=== PATIENT | male | born 1935 | race Caucasian/White ===

== ENCOUNTER 2020-07-10 07:06 | Inpatient (IN) | payer MEDICARE, BC ==
[2020-07-10] MEDS ORDERED: NORMAL SALINE 500 ML IV ONE (09:20)
[2020-07-10] MEDS ORDERED: MORPHINE SULFATE 10 MG/ML INJ IV ONE (10:35)
[2020-07-10 10:49] LABS: ABSOLUTE BASOPHILS # (AUTO) 0.1 10^3/uL (0.0-0.2); ABSOLUTE LYMPHOCYTES (AUTO) 1.7 10^3/uL (0.5-4.7); ABSOLUTE MONOCYTES (AUTO) 0.6 10^3/uL (0.1-1.4); ABSOLUTE NEUT (AUTO) 5.3 10^3/uL (1.7-8.2); BASOPHILS % (AUTO) 1.6 % (0-2); EOSINOPHILS % (AUTO) 0.6 % (0-6); HEMATOCRIT 28.8 % (37.9-51.0); HEMOGLOBIN 9.1 g/dL (13.5-17.0); MEAN CORPUSCULAR HEMOGLOBIN 28.5 pg (27.0-33.4); MEAN CORPUSCULAR HGB CONC 31.6 g/dL (32.0-36.0); MEAN CORPUSCULAR VOLUME 90 fl (80-97); MONOCYTES % (AUTO) 7.6 % (3-13); PLATELET COUNT 441 10^3/uL (150-450); RED BLOOD COUNT 3.19 10^6/uL (4.35-5.55); RED CELL DISTRIBUTION WIDTH 17.7 % (11.5-14.0); SEGMENTED NEUTROPHILS % (AUTO) 68.2 % (42-78); TOTAL CELLS COUNTED % (AUTO) 100 %; WHITE BLOOD COUNT 7.8 10^3/uL (4.0-10.5)
[2020-07-10 11:05] LABS: ALBUMIN 3.8 g/dL (3.5-5.0); ALKALINE PHOSPHATASE 265 U/L (38-126); ANION GAP 12 (5-19); ASPARTATE AMINO TRANSFERASE 32 U/L (17-59); BILIRUBIN,DIRECT 0.3 mg/dL (0.0-0.4); BILIRUBIN,TOTAL 0.8 mg/dL (0.2-1.3); BLOOD UREA NITROGEN 46 mg/dL (7-20); CALCIUM 9.4 mg/dL (8.4-10.2); CARBON DIOXIDE 26 mmol/L (22-30); CHLORIDE 124 mmol/L (98-107); GLUCOSE 114 mg/dL (75-110); POTASSIUM 3.8 mmol/L (3.6-5.0); TOTAL PROTEIN 8.4 g/dL (6.3-8.2)
[2020-07-10 11:19] LABS: INTERNATIONAL RATION (INR) 1.31; PROTHROMBIN TIME 16.5 SEC (11.4-15.4)
--- NOTE | 2020-07-10 11:20 | RADIOLOGY REPORT (SQ) ---
EXAM DESCRIPTION: CT HEAD WITHOUT IMAGES COMPLETED DATE/TIME: 07/10/2020 11:06 am REASON FOR STUDY: skin ulcer/bleeding/ left paietal/occiput region COMPARISON: None. TECHNIQUE: Axial images acquired through the brain without intravenous contrast. Images reviewed wit h bone, brain and subdural windows. Images stored on PACS. All CT scanners at this facility use dose modulation, iterative reconstruction, and/or weight based d osing when appropriate to reduce radiation dose to as low as reasonably achievable (ALARA). [facility]: Dose Right [facility]: CareDose [facility]: Dose Right [facility]: Teradose 4D [facility]: [facility] Integrated RADIATION DOSE: CT Rad equipment meets quality standard of care and radiation dose reduction techniq ues were employed. CTDIvol: 55.2 mGy. DLP: 1194 mGy-cm.. LIMITATIONS: None. FINDINGS: VENTRICLES: Age-appropriate size and contour. CEREBRUM: No acute hemorrhage or midline shift. Small vessel ischemic changes in the white matter wi th old appearing small right frontal infarct over the convexity. No evidence for acute infarction. CEREBELLUM: No masses. No hemorrhage. No alteration of density. No evidence for acute infarction. EXTRA-AXIAL SPACES: No fluid collections. ORBITS AND GLOBE: No intra- or extraconal masses. Normal contour of globe without masses. CALVARIUM: No fracture. PARANASAL SINUSES: No fluid or mucosal thickening. SOFT TISSUES: Small amount of left parietal soft tissue swelling. OTHER: No other significant finding. IMPRESSION: NO ACUTE INTRACRANIAL FINDINGS.Small amount of left parietal soft tissue swelling. EVIDENCE OF ACUTE STROKE: NO. TECHNICAL DOCUMENTATION: JOB ID: [id number] [place]-[id number] Quality ID # [id number]: Final reports with documentation of one or more dose reduction techniques (e.g., Au tomated exposure control, adjustment of the mA and/or kV according to patient size, use of iterative reconstruction technique) 2010 [employer]- All Rights Reserved Reading location - IP/workstation name: [employer] [employer]
[2020-07-10] MEDS ORDERED: LIDOCAINE 1% INJ-PF (10 MG/ML) 30 ML SDV INJ ONE (11:40)
[2020-07-10] MEDS ORDERED: NORMAL SALINE 1000 ML 1,000 ML IV ONE (14:07)
--- NOTE | 2020-07-10 14:38 | RADIOLOGY REPORT (SQ) ---
EXAM DESCRIPTION: CHEST SINGLE VIEW IMAGES COMPLETED DATE/TIME: 07/10/2020 2:23 pm REASON FOR STUDY: Dementia/hypernatremic COMPARISON: None. EXAM PARAMETERS: NUMBER OF VIEWS: One view. TECHNIQUE: Single frontal radiographic view of the chest acquired. RADIATION DOSE: NA LIMITATIONS: None. FINDINGS: LUNGS AND PLEURA: Minimal faint density in the left lung base. No lobar infiltrate, john s or pneumothorax. No pleural effusion. MEDIASTINUM AND HILAR STRUCTURES: No masses. Contour normal. HEART AND VASCULAR STRUCTURES: Heart normal in size. Normal vasculature. BONES: No acute findings. HARDWARE: None in the chest. OTHER: No other significant finding. IMPRESSION: MINIMAL ATELECTASIS OR SCARRING IN THE LEFT LUNG BASE. CANNOT EXCLUDE EARLY PNEUMONIA A LTHOUGH PROBABLY LESS LIKELY. TECHNICAL DOCUMENTATION: JOB ID: [id number] 2010 [employer]- All Rights Reserved Reading location - IP/workstation name: [email or web address]
[2020-07-10] MEDS ORDERED: DEXTROSE 5%-WATER 1000 ML 1,000 ML IV PRN (15:22)
[2020-07-10] MEDS ORDERED: ONDANSETRON HCL INJ/PF 4 MG/2 ML SDV IV PRN (15:22)
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
[2020-07-10 16:54] LABS: ANION GAP 7 (5-19); BLOOD UREA NITROGEN 45 mg/dL (7-20); CALCIUM 8.6 mg/dL (8.4-10.2); CARBON DIOXIDE 25 mmol/L (22-30); CHLORIDE 129 mmol/L (98-107); GLUCOSE 100 mg/dL (75-110)
[2020-07-10 23:33] LABS: ANION GAP 8 (5-19); BLOOD UREA NITROGEN 44 mg/dL (7-20); CALCIUM 8.8 mg/dL (8.4-10.2); CARBON DIOXIDE 26 mmol/L (22-30); CHLORIDE 129 mmol/L (98-107); GLUCOSE 105 mg/dL (75-110); POTASSIUM 4.2 mmol/L (3.6-5.0)
[2020-07-11 05:13] LABS: HEMATOCRIT 25.9 % (37.9-51.0); HEMOGLOBIN 8.2 g/dL (13.5-17.0); MEAN CORPUSCULAR HEMOGLOBIN 28.7 pg (27.0-33.4); MEAN CORPUSCULAR HGB CONC 31.7 g/dL (32.0-36.0); MEAN CORPUSCULAR VOLUME 91 fl (80-97); PLATELET COUNT 317 10^3/uL (150-450); RED BLOOD COUNT 2.86 10^6/uL (4.35-5.55); RED CELL DISTRIBUTION WIDTH 18.3 % (11.5-14.0); WHITE BLOOD COUNT 6.7 10^3/uL (4.0-10.5)
[2020-07-11 05:28] LABS: ANION GAP 10 (5-19); BLOOD UREA NITROGEN 43 mg/dL (7-20); CALCIUM 8.8 mg/dL (8.4-10.2); CARBON DIOXIDE 25 mmol/L (22-30); CHLORIDE 127 mmol/L (98-107); GLUCOSE 107 mg/dL (75-110); POTASSIUM 3.8 mmol/L (3.6-5.0)
[2020-07-11 12:58] LABS: ANION GAP 11 (5-19); BLOOD UREA NITROGEN 40 mg/dL (7-20); CALCIUM 8.9 mg/dL (8.4-10.2); CARBON DIOXIDE 23 mmol/L (22-30); CHLORIDE 126 mmol/L (98-107); GLUCOSE 99 mg/dL (75-110); POTASSIUM 3.6 mmol/L (3.6-5.0)
--- NOTE | 2020-07-11 15:51 | PDOC PROGRESS REPORT ---
Subjective Date:: 07/11/20 Subjective:: No adverse events overnight. Vital signs been stable. He remains in soft restr aints but he is a little more awake and talkative today. Reason For Visit: HYPERNATREMIA Physical Exam Vital Signs: Temp Pulse Resp BP Pulse Ox 97.9 F 79 21 H 136/77 H 80 L 07/11/20 11:41 07/11/20 14:00 07/11/20 11:41 07/11/20 11:41 07/11/20 08:07 Intake & Output 07/10/20 07/11/20 07/12/20 06:59 06:59 06:59 Intake Total 1500 Balance 1500 Weight 52.5 kg General appearance: PRESENT: no acute distress, disheveled, thin Head exam: PRESENT: other -large hematoma on the left lateral occiput as previously described with large wound bed from where he has been picking at it, no surrounding erythema or purulence. Respiratory exam: PRESENT: clear to auscultation lorraine, symmetrical, unlabored. ABSENT: accessory muscle use, chest wall tenderness, crackles, prolonged expiratory phas, rhonchi, tachypnea, wheezes Cardiovascular exam: PRESENT: RRR, +S1, +S2 Pulses: PRESENT: normal carotid pulses Vascular exam: PRESENT: normal capillary refill GI/Abdominal exam: PRESENT: hypoactive bowel sounds, soft. ABSENT: distended, guarding, rebound, tenderness Extremities exam: ABSENT: clubbing, pedal edema Musculoskeletal exam: PRESENT: normal inspection. ABSENT: deformity Neurological exam: ABSENT: oriented to person, oriented to place, oriented to situation Psychiatric exam: PRESENT: flat affect Skin exam: PRESENT: dry, pallor, warm Results Laboratory Results: 07/11/20 04:43 07/11/20 12:05 07/10/20 07/10/20 07/11/20 16:25 22:56 04:43 WBC RBC Hgb Hct MCV MCH MCHC RDW Plt Count Sodium 161.4 H 162.7 H 162.0 H Potassium 4.0 4.2 3.8 Chloride 129 H 129 H 127 H Carbon Dioxide 25 26 25 Anion Gap 7 8 10 BUN 45 H 44 H 43 H Creatinine 1.46 H 1.43 H 1.36 H Est GFR ( Amer) 55 L 57 L > 60 Glucose 100 105 107 Calcium 8.6 8.8 8.8 07/11/20 07/11/20 04:43 12:05 WBC 6.7 RBC 2.86 L Hgb 8.2 L Hct 25.9 L MCV 91 MCH 28.7 MCHC 31.7 L RDW 18.3 H Plt Count 317 Sodium 159.8 H Potassium 3.6 Chloride 126 H Carbon Dioxide 23 Anion Gap 11 BUN 40 H Creatinine 1.27 H Est GFR ( Amer) > 60 Glucose 99 Calcium 8.9 Impressions: Head CT 07/10/20 09:34 IMPRESSION: NO ACUTE INTRACRANIAL FINDINGS.Small amount of left parietal soft tissue swelling. EVIDENCE OF ACUTE STROKE: NO. Chest X-Ray 07/10/20 14:09 IMPRESSION: MINIMAL ATELECTASIS OR SCARRING IN THE LEFT LUNG BASE. CANNOT EXCLUDE EARLY PNEUMONIA ALTHOUGH PROBABLY LESS LIKELY. Assessment and Plan - Diagnosis (1) Hypernatremia Is this a current diagnosis for this admission?: Yes (2) Dehydration Is this a current diagnosis for this admission?: Yes (3) Acute kidney injury Is this a current diagnosis for this admission?: Yes (4) Dementia Qualifiers: Dementia type: Alzheimer's disease Alzheimer's disease onset: late-onset Dementia behavioral disturbance: without behavioral disturbance Qualified Code(s): G30.1 - Alzheimer's disease with late onset; F02.80 - Dementia in other diseases classified elsewhere without behavioral disturbance Is this a current diagnosis for this admission?: Yes (5) Coronary artery disease Qualifiers: Coronary Disease-Associated Artery/Lesion type: [place] artery [place] vs. transplanted heart: [place] heart Associated angina: without angina Qualified Code(s): I25.10 - Atherosclerotic heart disease of [place] coronary artery wi out angina pectoris Is this a current diagnosis for this admission?: Yes (6) Adequate anticoagulation on anticoagulant therapy Is this a current diagnosis for this admission?: Yes (7) Moderate protein-calorie malnutrition Is this a current diagnosis for this admission?: Yes - Plan Summary Summary: I think it took his sodium a little bit of time to respond because his serum sodium was 160 and he was given fluids and had 154 mEq of sodium. Therefore, it is taken a little bit of time for the more dilute D5W to help bring his sodium down, but it is trending down now. We will continue every 6 hours metabolic panels. We have to continue with soft restraints right now to keep him from pulling at his lines and from picking at the wound on his head. His BUN and creatinine are trending down. We will try to feed him when he is more alert. - Time Time Spent with patient: 15-24 minutes Anticipated Discharge Disposition: Group Home Facility Anticipated Discharge Timeframe: Unknown
[2020-07-11 17:23] LABS: ANION GAP 6 (5-19); BLOOD UREA NITROGEN 40 mg/dL (7-20); CALCIUM 8.9 mg/dL (8.4-10.2); CARBON DIOXIDE 26 mmol/L (22-30); CHLORIDE 125 mmol/L (98-107); GLUCOSE 99 mg/dL (75-110); POTASSIUM 3.7 mmol/L (3.6-5.0)
[2020-07-12 00:55] LABS: ANION GAP 8 (5-19); BLOOD UREA NITROGEN 39 mg/dL (7-20); CARBON DIOXIDE 23 mmol/L (22-30); CHLORIDE 126 mmol/L (98-107); GLUCOSE 111 mg/dL (75-110); POTASSIUM 3.6 mmol/L (3.6-5.0)
[2020-07-12 06:04] LABS: HEMATOCRIT 25.1 % (37.9-51.0); MEAN CORPUSCULAR HEMOGLOBIN 28.8 pg (27.0-33.4); MEAN CORPUSCULAR HGB CONC 31.9 g/dL (32.0-36.0); MEAN CORPUSCULAR VOLUME 90 fl (80-97); PLATELET COUNT 294 10^3/uL (150-450); RED BLOOD COUNT 2.78 10^6/uL (4.35-5.55); RED CELL DISTRIBUTION WIDTH 17.9 % (11.5-14.0); WHITE BLOOD COUNT 7.7 10^3/uL (4.0-10.5)
[2020-07-12 06:47] LABS: ANION GAP 12 (5-19); BLOOD UREA NITROGEN 38 mg/dL (7-20); CALCIUM 9.1 mg/dL (8.4-10.2); CARBON DIOXIDE 23 mmol/L (22-30); CHLORIDE 123 mmol/L (98-107); GLUCOSE 105 mg/dL (75-110); POTASSIUM 3.8 mmol/L (3.6-5.0)
[2020-07-12 11:38] LABS: ANION GAP 10 (5-19); BLOOD UREA NITROGEN 36 mg/dL (7-20); CALCIUM 8.8 mg/dL (8.4-10.2); CARBON DIOXIDE 24 mmol/L (22-30); CHLORIDE 119 mmol/L (98-107); GLUCOSE 109 mg/dL (75-110); POTASSIUM 3.5 mmol/L (3.6-5.0)
[2020-07-12] MEDS: DEXTROSE 5%-WATER 1000 ML 1,000 ML IV PRN (11:51)
--- NOTE | 2020-07-12 17:16 | PDOC PROGRESS REPORT ---
Subjective Date:: 07/12/20 Subjective:: No adverse events overnight. Vital signs been stable. He remains in soft restr aints but he is somnolent today. He is eating very little. Reason For Visit: HYPERNATREMIA Physical Exam Vital Signs: Temp Pulse Resp BP Pulse Ox 97.3 F 78 18 121/49 L 92 07/12/20 11:54 07/12/20 11:54 07/12/20 11:54 07/12/20 11:54 07/12/20 11:54 Intake & Output 07/11/20 07/12/20 07/13/20 06:59 06:59 06:59 Intake Total 1500 Balance 1500 Weight 52.5 kg 52.5 kg General appearance: PRESENT: no acute distress, disheveled, thin Head exam: PRESENT: other -large hematoma on the left lateral occiput as previously described with large wound bed from where he has been picking at it, no surrounding erythema or purulence. Respiratory exam: PRESENT: clear to auscultation lorraine, symmetrical, unlabored. ABSENT: accessory muscle use, chest wall tenderness, crackles, prolonged expiratory phas, rhonchi, tachypnea, wheezes Cardiovascular exam: PRESENT: RRR, +S1, +S2 Pulses: PRESENT: normal carotid pulses Vascular exam: PRESENT: normal capillary refill GI/Abdominal exam: PRESENT: hypoactive bowel sounds, soft. ABSENT: distended, guarding, rebound, tenderness Extremities exam: ABSENT: clubbing, pedal edema Musculoskeletal exam: PRESENT: normal inspection. ABSENT: deformity Neurological exam: ABSENT: oriented to person, oriented to place, oriented to situation Psychiatric exam: PRESENT: flat affect Skin exam: PRESENT: dry, pallor, warm Results Laboratory Results: 07/12/20 05:20 07/12/20 10:27 07/11/20 07/11/20 07/11/20 16:54 22:56 23:47 WBC RBC Hgb Hct MCV MCH MCHC RDW Plt Count Sodium 156.9 H Cancelled 157.2 H Potassium 3.7 Cancelled 3.6 Chloride 125 H Cancelled 126 H Carbon Dioxide 26 Cancelled 23 Anion Gap 6 Cancelled 8 BUN 40 H Cancelled 39 H Creatinine 1.23 Cancelled 1.22 Est GFR ( Amer) > 60 Cancelled > 60 Est GFR (Non-Af Amer) Cancelled Glucose 99 Cancelled 111 H Calcium 8.9 Cancelled 9.0 07/12/20 07/12/20 07/12/20 05:20 05:20 10:27 WBC 7.7 RBC 2.78 L Hgb 8.0 L Hct 25.1 L MCV 90 MCH 28.8 MCHC 31.9 L RDW 17.9 H Plt Count 294 Sodium 157.8 H 153.1 H Potassium 3.8 3.5 L Chloride 123 H 119 H Carbon Dioxide 23 24 Anion Gap 12 10 BUN 38 H 36 H Creatinine 1.19 1.11 Est GFR ( Amer) > 60 > 60 Est GFR (Non-Af Amer) Glucose 105 109 Calcium 9.1 8.8 Impressions: Head CT 07/10/20 09:34 IMPRESSION: NO ACUTE INTRACRANIAL FINDINGS.Small amount of left parietal soft tissue swelling. EVIDENCE OF ACUTE STROKE: NO. Chest X-Ray 07/10/20 14:09 IMPRESSION: MINIMAL ATELECTASIS OR SCARRING IN THE LEFT LUNG BASE. CANNOT EXCLUDE EARLY PNEUMONIA ALTHOUGH PROBABLY LESS LIKELY. Assessment and Plan - Diagnosis (1) Hypernatremia Is this a current diagnosis for this admission?: Yes (2) Dehydration Is this a current diagnosis for this admission?: Yes (3) Acute kidney injury Is this a current diagnosis for this admission?: Yes (4) Dementia Qualifiers: Dementia type: Alzheimer's disease Alzheimer's disease onset: late-onset Dementia behavioral disturbance: without behavioral disturbance Qualified Code(s): G30.1 - Alzheimer's disease with late onset; F02.80 - Dementia in other diseases classified elsewhere without behavioral disturbance Is this a current diagnosis for this admission?: Yes (5) Coronary artery disease Qualifiers: Coronary Disease-Associated Artery/Lesion type: [place] artery [place] vs. transplanted heart: [place] heart Associated angina: without angina Qualified Code(s): I25.10 - Atherosclerotic heart disease of [place] coronary artery without angina pectoris Is this a current diagnosis for this admission?: Yes (6) Adequate anticoagulation on anticoagulant therapy Is this a current diagnosis for this admission?: Yes (7) Moderate protein-calorie malnutrition Is this a current diagnosis for this admission?: Yes - Plan Summary Summary: Sodium has a nice low downward trend. Continue relatively low rate of D5W. We will continue to try to feed him as much as he wants. When he wakes up a little more we will resume his home medications. His family says that he was supposed to be getting a swallow evaluation as an outpatient. If he wakes up a little bit more, will have him evaluated here. - Time Time Spent with patient: 15-24 minutes Anticipated Discharge Disposition: Care Home Facility Anticipated Discharge Timeframe: Unknown
[2020-07-13] MEDS: DEXTROSE 5%-WATER 1000 ML 1,000 ML IV PRN (05:15)
[2020-07-13 06:00] LABS: HEMATOCRIT 24.1 % (37.9-51.0); MEAN CORPUSCULAR HGB CONC 32.4 g/dL (32.0-36.0); MEAN CORPUSCULAR VOLUME 90 fl (80-97); PLATELET COUNT 243 10^3/uL (150-450); RED BLOOD COUNT 2.69 10^6/uL (4.35-5.55); RED CELL DISTRIBUTION WIDTH 18.1 % (11.5-14.0); WHITE BLOOD COUNT 7.6 10^3/uL (4.0-10.5)
[2020-07-13 06:33] LABS: HEMOGLOBIN 7.8 g/dL (13.5-17.0)
[2020-07-13 10:08] LABS: ANION GAP 8 (5-19); BLOOD UREA NITROGEN 31 mg/dL (7-20); CALCIUM 8.8 mg/dL (8.4-10.2); CARBON DIOXIDE 24 mmol/L (22-30); CHLORIDE 118 mmol/L (98-107); GLUCOSE 118 mg/dL (75-110); POTASSIUM 3.6 mmol/L (3.6-5.0)
--- NOTE | 2020-07-13 16:18 | PDOC PROGRESS REPORT ---
Subjective Date:: 07/13/20 Subjective:: No adverse events overnight. Vital signs been stable. He remains in soft restr aints but he is somnolent today. He is eating very little. He is waking up a little bit more during the day but he still naps quite a bit. Reason For Visit: HYPERNATREMIA Physical Exam Vital Signs: Temp Pulse Resp BP Pulse Ox 97.9 F 70 20 130/72 H 98 07/13/20 12:00 07/13/20 12:00 07/13/20 12:00 07/13/20 12:00 07/13/20 12:00 Intake & Output 07/12/20 07/13/20 07/14/20 06:59 06:59 06:59 Intake Total 1000 25 Balance 1000 25 Weight 52.5 kg 52.2 kg 52.2 kg General appearance: PRESENT: no acute distress, disheveled, thin Head exam: PRESENT: other -large hematoma on the left lateral occiput as previously described with large wound bed from where he has been picking at it, no surrounding erythema or purulence. Respiratory exam: PRESENT: clear to auscultation lorraine, symmetrical, unlabored. ABSENT: accessory muscle use, chest wall tenderness, crackles, prolonged expiratory phas, rhonchi, tachypnea, wheezes Cardiovascular exam: PRESENT: RRR, +S1, +S2 Pulses: PRESENT: normal carotid pulses Vascular exam: PRESENT: normal capillary refill GI/Abdominal exam: PRESENT: hypoactive bowel sounds, soft. ABSENT: distended, guarding, rebound, tenderness Extremities exam: ABSENT: clubbing, pedal edema Musculoskeletal exam: PRESENT: normal inspection. ABSENT: deformity Neurological exam: ABSENT: oriented to person, oriented to place, oriented to situation Psychiatric exam: PRESENT: flat affect Skin exam: PRESENT: dry, pallor, warm Results Laboratory Results: 07/13/20 04:54 07/13/20 09:29 07/13/20 07/13/20 04:54 09:29 WBC 7.6 RBC 2.69 L Hgb 7.8 L Hct 24.1 L MCV 90 MCH 29.0 MCHC 32.4 RDW 18.1 H Plt Count 243 Sodium 149.5 H Potassium 3.6 Chloride 118 H Carbon Dioxide 24 Anion Gap 8 BUN 31 H Creatinine 0.95 Est GFR ( Amer) > 60 Glucose 118 H Calcium 8.8 Impressions: Head CT 07/10/20 09:34 IMPRESSION: NO ACUTE INTRACRANIAL FINDINGS.Small amount of left parietal soft tissue swelling. EVIDENCE OF ACUTE STROKE: NO. Chest X-Ray 07/10/20 14:09 IMPRESSION: MINIMAL ATELECTASIS OR SCARRING IN THE LEFT LUNG BASE. CANNOT EXCLUDE EARLY PNEUMONIA ALTHOUGH PROBABLY LESS LIKELY. Assessment and Plan - Diagnosis (1) Hypernatremia Is this a current diagnosis for this admission?: Yes (2) Dehydration Is this a current diagnosis for this admission?: Yes (3) Acute kidney injury Is this a current diagnosis for this admission?: Yes (4) Dementia Qualifiers: Dementia type: Alzheimer's disease Alzheimer's disease onset: late-onset Dementia behavioral disturbance: without behavioral disturbance Qualified Code(s): G30.1 - Alzheimer's disease with late onset; F02.80 - Dementia in other diseases classified elsewhere without behavioral disturbance Is this a current diagnosis for this admission?: Yes (5) Coronary artery disease Qualifiers: Coronary Disease-Associated Artery/Lesion type: [place] artery [place] vs. transplanted heart: [place] heart Associated angina: without angina Qualified Code(s): I25.10 - Atherosclerotic heart disease of [place] coronary artery without angina pectoris Is this a current diagnosis for this admission?: Yes (6) Adequate anticoagulation on anticoagulant therapy Is this a current diagnosis for this admission?: Yes (7) Moderate protein-calorie malnutrition Is this a current diagnosis for this admission?: Yes - Plan Summary Summary: Sodium has a nice slow downward trend. Continue relatively low rate of D5W. We will continue to try to feed him as much as he wants. Swallow evaluation pending. If they think he can tolerate pills we will resume some of his home medications. - Time Time Spent with patient: 15-24 minutes Anticipated Discharge Disposition: Care Home Facility Anticipated Discharge Timeframe: Unknown
[2020-07-14 05:21] LABS: ANION GAP 6 (5-19); BLOOD UREA NITROGEN 25 mg/dL (7-20); CALCIUM 8.7 mg/dL (8.4-10.2); CARBON DIOXIDE 27 mmol/L (22-30); CHLORIDE 112 mmol/L (98-107); GLUCOSE 95 mg/dL (75-110); POTASSIUM 3.4 mmol/L (3.6-5.0)
[2020-07-14] MEDS ORDERED: TRAMADOL HCL 50 MG TABLET PO PRN (08:11)
[2020-07-14] MEDS ORDERED: LOPERAMIDE HCL 2 MG PO PRN (08:11)
[2020-07-14] MEDS ORDERED: BISACODYL 10 MG SUPP.RECT PR PRN (08:11)
[2020-07-14] MEDS ORDERED: ACETAMINOPHEN 500 MG PO PRN (08:11)
[2020-07-14] MEDS ORDERED: LOPERAMIDE HCL 2 MG CAPSULE PO PRN (09:43)
[2020-07-14] MEDS ORDERED: (PENDING PHARMACY ID) (Omeprazole Magnesium [Prilosec Otc] 20 MG Tablet.Dr) PO SCH (10:00)
[2020-07-14] MEDS ORDERED: (PENDING PHARMACY ID) (Buspirone Hcl [Buspirone Hcl] 5 MG Tablet) PO SCH (10:00)
[2020-07-14] MEDS: TRIAMCINOLONE ACETONIDE 0.1% CREAM 15 GM TOP SCH ×2 (11:18→23:47)
[2020-07-14] MEDS: CHOLECALCIFEROL (D3) 1,000 UNIT (25 MCG) TABLET PO SCH (11:18)
[2020-07-14] MEDS: GABAPENTIN 100 MG CAPSULE PO SCH ×3 (11:19→17:42)
[2020-07-14] MEDS: TAMSULOSIN HCL 0.4 MG CAP.SR.24H PO SCH (11:19)
[2020-07-14] MEDS: BUSPIRONE HCL 10 MG TABLET PO SCH (11:19)
[2020-07-14] MEDS: HALOPERIDOL 0.5 MG TABLET PO SCH (11:19)
[2020-07-14] MEDS: PANTOPRAZOLE SODIUM 20 MG TABLET.DR PO SCH (11:19)
[2020-07-14] MEDS: ZINC SULFATE 220 MG CAPSULE PO SCH (11:19)
[2020-07-14] MEDS: ASCORBIC ACID 500 MG TABLET PO SCH (11:19)
[2020-07-14] MEDS: FERROUS SULFATE 325 MG TABLET PO SCH (11:20)
[2020-07-14] MEDS: SERTRALINE HCL 50 MG TABLET PO SCH (11:20)
[2020-07-14] MEDS: ACETAMINOPHEN 325 MG TABLET PO SCH ×2 (11:23→17:42)
[2020-07-14] MEDS: QUETIAPINE FUMARATE 100 MG TABLET PO SCH (13:40)
--- NOTE | 2020-07-14 14:15 | PDOC PROGRESS REPORT ---
Subjective Date:: 07/14/20 Subjective:: No adverse events overnight. Vital signs been stable. He remains in soft restr aints but he is somnolent today. Today's sodium is 144. Reason For Visit: HYPERNATREMIA Physical Exam Vital Signs: Temp Pulse Resp BP Pulse Ox 97.3 F 61 18 113/62 93 07/14/20 08:13 07/14/20 12:00 07/14/20 12:00 07/14/20 12:00 07/14/20 12:00 Intake & Output 07/13/20 07/14/20 07/15/20 06:59 06:59 06:59 Intake Total 1000 125 Balance 1000 125 Weight 115 lb 1.301 oz 120 lb 2.431 oz Exam: General appearance: PRESENT: no acute distress, disheveled, thin Head exam: PRESENT: other -large hematoma on the left lateral occiput as previously described with large wound bed from where he has been picking at it, no surrounding erythema or purulence. Respiratory exam: PRESENT: clear to auscultation lorraine, symmetrical, unlabored. ABSENT: accessory muscle use, chest wall tenderness, crackles, prolonged expiratory phas, rhonchi, tachypnea, wheezes Cardiovascular exam: PRESENT: RRR, +S1, +S2 Pulses: PRESENT: normal carotid pulses Vascular exam: PRESENT: normal capillary refill GI/Abdominal exam: PRESENT: hypoactive bowel sounds, soft. ABSENT: distended, guarding, rebound, tenderness Extremities exam: ABSENT: clubbing, pedal edema Musculoskeletal exam: PRESENT: normal inspection. ABSENT: deformity Neurological exam: ABSENT: oriented to person, oriented to place, oriented to situation Psychiatric exam: PRESENT: flat affect Skin exam: PRESENT: dry, pallor, warm Results Laboratory Results: 07/13/20 04:54 07/14/20 04:27 07/14/20 04:27 Sodium 144.7 Potassium 3.4 L Chloride 112 H Carbon Dioxide 27 Anion Gap 6 BUN 25 H Creatinine 0.96 Est GFR ( Amer) > 60 Glucose 95 Calcium 8.7 Impressions: Head CT 07/10/20 09:34 IMPRESSION: NO ACUTE INTRACRANIAL FINDINGS.Small amount of left parietal soft tissue swelling. EVIDENCE OF ACUTE STROKE: NO. Chest X-Ray 07/10/20 14:09 IMPRESSION: MINIMAL ATELECTASIS OR SCARRING IN THE LEFT LUNG BASE. CANNOT EXCLUDE EARLY PNEUMONIA ALTHOUGH PROBABLY LESS LIKELY. Assessment and Plan - Plan Summary Summary: (1) Hypernatremia (2) Dehydration (3) Acute kidney injury (4) Dementia (5) Coronary artery disease (6) Adequate anticoagulation on anticoagulant therapy (7) Moderate protein-calorie malnutrition Plan Summary Sodium is 144 today. Continue relatively low rate of D5W. Continue to try to feed him as much as he wants. Swallow evaluation pending. If they think he can tolerate pills we will resume some of his home medications. Transfer back to [facility]. - Time Anticipated Discharge Disposition: Group Home Facility Anticipated Discharge Timeframe: within 72 hours
[2020-07-14] MEDS ORDERED: (PENDING PHARMACY ID) (Rosuvastatin Calcium [Crestor] 20 MG Tablet) PO SCH (22:00)
[2020-07-14] MEDS: MIRTAZAPINE 15 MG TABLET PO SCH (22:10)
[2020-07-14] MEDS: ATORVASTATIN CALCIUM 40 MG TABLET PO SCH (22:10)
[2020-07-14] MEDS: MELATONIN 5 MG TABLET PO SCH (22:11)
[2020-07-14] MEDS: TRAZODONE HCL 50 MG TABLET PO SCH (22:11)
[2020-07-15] MEDS: DEXTROSE 5%-WATER 1000 ML 1,000 ML IV PRN (04:29)
[2020-07-15] MEDS: ACETAMINOPHEN 325 MG TABLET PO SCH ×5 (06:13→17:37)
[2020-07-15 07:15] LABS: ANION GAP 6 (5-19); BLOOD UREA NITROGEN 19 mg/dL (7-20); CALCIUM 8.4 mg/dL (8.4-10.2); CARBON DIOXIDE 28 mmol/L (22-30); CHLORIDE 106 mmol/L (98-107); GLUCOSE 100 mg/dL (75-110); POTASSIUM 3.6 mmol/L (3.6-5.0)
[2020-07-15 07:18] LABS: HEMATOCRIT 26.4 % (37.9-51.0); HEMOGLOBIN 8.6 g/dL (13.5-17.0); MEAN CORPUSCULAR HEMOGLOBIN 28.5 pg (27.0-33.4); MEAN CORPUSCULAR HGB CONC 32.6 g/dL (32.0-36.0); MEAN CORPUSCULAR VOLUME 88 fl (80-97); PLATELET COUNT 186 10^3/uL (150-450); RED BLOOD COUNT 3.01 10^6/uL (4.35-5.55); RED CELL DISTRIBUTION WIDTH 17.9 % (11.5-14.0); WHITE BLOOD COUNT 10.5 10^3/uL (4.0-10.5)
[2020-07-15] MEDS: TRAZODONE HCL 50 MG TABLET PO SCH ×2 (09:43→21:17)
[2020-07-15] MEDS: CHOLECALCIFEROL (D3) 1,000 UNIT (25 MCG) TABLET PO SCH (09:43)
[2020-07-15] MEDS: SERTRALINE HCL 50 MG TABLET PO SCH (09:43)
[2020-07-15] MEDS: GABAPENTIN 100 MG CAPSULE PO SCH ×3 (09:43→17:37)
[2020-07-15] MEDS: BUSPIRONE HCL 10 MG TABLET PO SCH (09:43)
[2020-07-15] MEDS: FERROUS SULFATE 325 MG TABLET PO SCH (09:43)
[2020-07-15] MEDS: PANTOPRAZOLE SODIUM 20 MG TABLET.DR PO SCH (09:43)
[2020-07-15] MEDS: ZINC SULFATE 220 MG CAPSULE PO SCH (09:43)
[2020-07-15] MEDS: TAMSULOSIN HCL 0.4 MG CAP.SR.24H PO SCH (09:44)
[2020-07-15] MEDS: HALOPERIDOL 0.5 MG TABLET PO SCH (09:44)
[2020-07-15] MEDS: ASCORBIC ACID 500 MG TABLET PO SCH (09:44)
[2020-07-15] MEDS: TRIAMCINOLONE ACETONIDE 0.1% CREAM 15 GM TOP SCH ×2 (09:45→21:18)
[2020-07-15] MEDS: QUETIAPINE FUMARATE 100 MG TABLET PO SCH ×2 (09:55→17:37)
[2020-07-15] MEDS ORDERED: 1/2 NORMAL SALINE 1,000 ML IV PRN (14:50)
--- NOTE | 2020-07-15 14:53 | PDOC PROGRESS REPORT ---
Subjective Date:: 07/15/20 Subjective:: No adverse events overnight. Vital signs been stable. He is currently off rest raints. Tested positive for Covid but asymptomatic. Reason For Visit: HYPERNATREMIA Physical Exam Vital Signs: Temp Pulse Resp BP Pulse Ox 97.5 F 64 19 144/67 H 98 07/15/20 11:17 07/15/20 11:17 07/15/20 11:17 07/15/20 11:17 07/15/20 11:17 Intake & Output 07/14/20 07/15/20 07/16/20 06:59 06:59 06:59 Intake Total 1125 250 Balance 1125 250 Weight 120 lb 2.431 oz 114 lb 13.773 oz Exam: General appearance: PRESENT: no acute distress, disheveled, thin Head exam: PRESENT: other -large hematoma on the left lateral occiput as previously described with large wound bed from where he has been picking at it, no surrounding erythema or purulence. Respiratory exam: PRESENT: clear to auscultation lorraine, symmetrical, unlabored. ABSENT: accessory muscle use, chest wall tenderness, crackles, prolonged expiratory phas, rhonchi, tachypnea, wheezes Cardiovascular exam: PRESENT: RRR, +S1, +S2 Pulses: PRESENT: normal carotid pulses Vascular exam: PRESENT: normal capillary refill GI/Abdominal exam: PRESENT: hypoactive bowel sounds, soft. ABSENT: distended, guarding, rebound, tenderness Extremities exam: ABSENT: clubbing, pedal edema Musculoskeletal exam: PRESENT: normal inspection. ABSENT: deformity Neurological exam: ABSENT: oriented to person, oriented to place, oriented to situation Psychiatric exam: PRESENT: flat affect Skin exam: PRESENT: dry, pallor, warm Results Laboratory Results: 07/15/20 05:54 07/15/20 05:54 07/15/20 07/15/20 05:54 05:54 WBC 10.5 RBC 3.01 L Hgb 8.6 L Hct 26.4 L MCV 88 MCH 28.5 MCHC 32.6 RDW 17.9 H Plt Count 186 Sodium 139.8 Potassium 3.6 Chloride 106 Carbon Dioxide 28 Anion Gap 6 BUN 19 Creatinine 0.85 Est GFR ( Amer) > 60 Glucose 100 Calcium 8.4 Impressions: Head CT 07/10/20 09:34 IMPRESSION: NO ACUTE INTRACRANIAL FINDINGS.Small amount of left parietal soft tissue swelling. EVIDENCE OF ACUTE STROKE: NO. Chest X-Ray 07/10/20 14:09 IMPRESSION: MINIMAL ATELECTASIS OR SCARRING IN THE LEFT LUNG BASE. CANNOT EXCLUDE EARLY PNEUMONIA ALTHOUGH PROBABLY LESS LIKELY. Assessment and Plan - Plan Summary Summary: (1) Hypernatremia (2) Dehydration (3) Acute kidney injury (4) Dementia (5) Coronary artery disease (6) Adequate anticoagulation on anticoagulant therapy (7) Moderate protein-calorie malnutrition Plan Summary Sodium is 139 today. Switch to half-normal saline from D5W. Continue to try to feed him as much as he wants. Swallow evaluation pending. If they think he can tolerate pills we will resume some of his home medications. Can be transferred back to [facility] any time. - Time Anticipated Discharge Disposition: Long-Term Facility Anticipated Discharge Timeframe: within 72 hours
[2020-07-15] MEDS: MELATONIN 5 MG TABLET PO SCH (21:16)
[2020-07-15] MEDS: ATORVASTATIN CALCIUM 40 MG TABLET PO SCH (21:17)
[2020-07-15] MEDS: MIRTAZAPINE 15 MG TABLET PO SCH (21:17)
[2020-07-16] MEDS: ACETAMINOPHEN 325 MG TABLET PO SCH ×4 (05:26→17:24)
[2020-07-16 07:19] LABS: MEAN CORPUSCULAR HEMOGLOBIN 28.6 pg (27.0-33.4); MEAN CORPUSCULAR HGB CONC 32.7 g/dL (32.0-36.0); MEAN CORPUSCULAR VOLUME 88 fl (80-97); PLATELET COUNT 172 10^3/uL (150-450); RED BLOOD COUNT 2.63 10^6/uL (4.35-5.55); WHITE BLOOD COUNT 10.9 10^3/uL (4.0-10.5)
[2020-07-16 07:31] LABS: HEMOGLOBIN 7.5 g/dL (13.5-17.0)
[2020-07-16 07:37] LABS: ANION GAP 8 (5-19); BLOOD UREA NITROGEN 20 mg/dL (7-20); CALCIUM 8.2 mg/dL (8.4-10.2); CARBON DIOXIDE 23 mmol/L (22-30); CHLORIDE 106 mmol/L (98-107); GLUCOSE 100 mg/dL (75-110); POTASSIUM 3.3 mmol/L (3.6-5.0)
[2020-07-16] MEDS: ZINC SULFATE 220 MG CAPSULE PO SCH (10:03)
[2020-07-16] MEDS: GABAPENTIN 100 MG CAPSULE PO SCH ×3 (10:03→17:28)
[2020-07-16] MEDS: SERTRALINE HCL 50 MG TABLET PO SCH (10:03)
[2020-07-16] MEDS: FERROUS SULFATE 325 MG TABLET PO SCH (10:03)
[2020-07-16] MEDS: BUSPIRONE HCL 10 MG TABLET PO SCH (10:04)
[2020-07-16] MEDS: TAMSULOSIN HCL 0.4 MG CAP.SR.24H PO SCH (10:05)
[2020-07-16] MEDS: PANTOPRAZOLE SODIUM 20 MG TABLET.DR PO SCH (10:05)
[2020-07-16] MEDS: HALOPERIDOL 0.5 MG TABLET PO SCH (10:05)
[2020-07-16] MEDS: TRAZODONE HCL 50 MG TABLET PO SCH ×2 (10:06→21:16)
[2020-07-16] MEDS: TRIAMCINOLONE ACETONIDE 0.1% CREAM 15 GM TOP SCH ×2 (10:10→21:24)
[2020-07-16] MEDS: QUETIAPINE FUMARATE 100 MG TABLET PO SCH ×2 (10:13→15:25)
[2020-07-16] MEDS: ASCORBIC ACID 500 MG TABLET PO SCH (10:17)
[2020-07-16] MEDS: CHOLECALCIFEROL (D3) 1,000 UNIT (25 MCG) TABLET PO SCH (10:20)
--- NOTE | 2020-07-16 11:05 | PDOC PROGRESS REPORT ---
Subjective Date:: 07/16/20 Subjective:: No adverse events overnight. Vital signs been stable. He is currently off rest raints. Tested positive for Covid but asymptomatic. No clinical changes. Reason For Visit: HYPERNATREMIA Physical Exam Vital Signs: Temp Pulse Resp BP Pulse Ox 97.8 F 55 L 20 138/56 H 99 07/16/20 09:22 07/16/20 09:22 07/16/20 09:22 07/16/20 09:22 07/16/20 09:22 Intake & Output 07/15/20 07/16/20 07/17/20 06:59 06:59 06:59 Intake Total 250 992 Balance 250 992 Weight 114 lb 13.773 oz 117 lb 11.629 oz Exam: General appearance: PRESENT: no acute distress, disheveled, thin Head exam: PRESENT: other -large hematoma on the left lateral occiput as previously described with large wound bed from where he has been picking at it, no surrounding erythema or purulence. Respiratory exam: PRESENT: clear to auscultation lorraine, symmetrical, unlabored. ABSENT: accessory muscle use, chest wall tenderness, crackles, prolonged expiratory phas, rhonchi, tachypnea, wheezes Cardiovascular exam: PRESENT: RRR, +S1, +S2 Pulses: PRESENT: normal carotid pulses Vascular exam: PRESENT: normal capillary refill GI/Abdominal exam: PRESENT: hypoactive bowel sounds, soft. ABSENT: distended, guarding, rebound, tenderness Extremities exam: ABSENT: clubbing, pedal edema Musculoskeletal exam: PRESENT: normal inspection. ABSENT: deformity Neurological exam: ABSENT: oriented to person, oriented to place, oriented to situation Psychiatric exam: PRESENT: flat affect Skin exam: PRESENT: dry, pallor, warm Results Laboratory Results: 07/16/20 06:24 07/16/20 06:24 07/16/20 07/16/20 06:24 06:24 WBC 10.9 H RBC 2.63 L Hgb 7.5 L Hct 23.0 L MCV 88 MCH 28.6 MCHC 32.7 RDW 18.0 H Plt Count 172 Sodium 137.3 Potassium 3.3 L Chloride 106 Carbon Dioxide 23 Anion Gap 8 BUN 20 Creatinine 0.83 Est GFR ( Amer) > 60 Glucose 100 Calcium 8.2 L Impressions: Head CT 07/10/20 09:34 IMPRESSION: NO ACUTE INTRACRANIAL FINDINGS.Small amount of left parietal soft tissue swelling. EVIDENCE OF ACUTE STROKE: NO. Chest X-Ray 07/10/20 14:09 IMPRESSION: MINIMAL ATELECTASIS OR SCARRING IN THE LEFT LUNG BASE. CANNOT EXCLUDE EARLY PNEUMONIA ALTHOUGH PROBABLY LESS LIKELY. Assessment and Plan - Plan Summary Summary: (1) Hypernatremia (2) Dehydration (3) Acute kidney injury (4) Dementia (5) Coronary artery disease (6) Adequate anticoagulation on anticoagulant therapy (7) Moderate protein-calorie malnutrition Plan Summary Sodium is 137 today. Yesterday, switched to half-normal saline from D5W. He has low potassium today. We will switch IV fluids to normal saline was 20 of potassium at 75/h. Continue to try to feed him as much as he wants. Swallow evaluation pending. If they think he can tolerate pills we will resume some of his home medications. [facility] be transferred back to [facility] any time. - Time Anticipated Discharge Disposition: [facility] Anticipated Discharge Timeframe: within 72 hours
[2020-07-16] MEDS: POTASSI CL 20 MEQ/NS 1L 1,000 ML IV PRN (15:25)
[2020-07-16] MEDS: ATORVASTATIN CALCIUM 40 MG TABLET PO SCH (21:15)
[2020-07-16] MEDS: MIRTAZAPINE 15 MG TABLET PO SCH (21:16)
[2020-07-16] MEDS: MELATONIN 5 MG TABLET PO SCH (21:16)
[2020-07-17] MEDS: POTASSI CL 20 MEQ/NS 1L 1,000 ML IV PRN (04:01)
[2020-07-17] MEDS: ACETAMINOPHEN 325 MG TABLET PO SCH ×4 (05:12→17:34)
[2020-07-17 06:31] LABS: HEMATOCRIT 21.4 % (37.9-51.0); MEAN CORPUSCULAR HEMOGLOBIN 28.9 pg (27.0-33.4); MEAN CORPUSCULAR VOLUME 88 fl (80-97); PLATELET COUNT 142 10^3/uL (150-450); RED BLOOD COUNT 2.44 10^6/uL (4.35-5.55); RED CELL DISTRIBUTION WIDTH 18.2 % (11.5-14.0); WHITE BLOOD COUNT 9.9 10^3/uL (4.0-10.5)
[2020-07-17 06:46] LABS: HEMOGLOBIN 7.1 g/dL (13.5-17.0)
[2020-07-17 06:48] LABS: ANION GAP 6 (5-19); BLOOD UREA NITROGEN 17 mg/dL (7-20); CALCIUM 8.2 mg/dL (8.4-10.2); CARBON DIOXIDE 21 mmol/L (22-30); CHLORIDE 112 mmol/L (98-107); GLUCOSE 84 mg/dL (75-110); POTASSIUM 3.4 mmol/L (3.6-5.0)
[2020-07-17] MEDS: HALOPERIDOL 0.5 MG TABLET PO SCH (10:24)
[2020-07-17] MEDS: ZINC SULFATE 220 MG CAPSULE PO SCH (10:24)
[2020-07-17] MEDS: ASCORBIC ACID 500 MG TABLET PO SCH (10:25)
[2020-07-17] MEDS: TAMSULOSIN HCL 0.4 MG CAP.SR.24H PO SCH (10:25)
[2020-07-17] MEDS: GABAPENTIN 100 MG CAPSULE PO SCH ×3 (10:25→17:40)
[2020-07-17] MEDS: BUSPIRONE HCL 10 MG TABLET PO SCH (10:25)
[2020-07-17] MEDS: SERTRALINE HCL 50 MG TABLET PO SCH (10:25)
[2020-07-17] MEDS: TRAZODONE HCL 50 MG TABLET PO SCH ×2 (10:26→21:21)
[2020-07-17] MEDS: CHOLECALCIFEROL (D3) 1,000 UNIT (25 MCG) TABLET PO SCH (10:26)
[2020-07-17] MEDS: PANTOPRAZOLE SODIUM 20 MG TABLET.DR PO SCH (10:26)
[2020-07-17] MEDS: FERROUS SULFATE 325 MG TABLET PO SCH (10:26)
[2020-07-17] MEDS: TRIAMCINOLONE ACETONIDE 0.1% CREAM 15 GM TOP SCH ×2 (10:27→21:21)
[2020-07-17] MEDS: QUETIAPINE FUMARATE 100 MG TABLET PO SCH ×2 (10:28→15:01)
--- NOTE | 2020-07-17 16:04 | PDOC PROGRESS REPORT ---
Subjective Date:: 07/17/20 Subjective:: No issues overnight. Vital signs been stable. He is currently off restraints. No clinical changes. Reason For Visit: HYPERNATREMIA Physical Exam Vital Signs: Temp Pulse Resp BP Pulse Ox 97.7 F 77 20 129/73 H 91 L 07/17/20 09:02 07/17/20 09:02 07/17/20 09:02 07/17/20 09:02 07/17/20 03:46 Intake & Output 07/16/20 07/17/20 07/18/20 06:59 06:59 06:59 Intake Total 992 945 0 Balance 992 945 0 Weight 117 lb 11.629 oz 117 lb 11.629 oz Exam: General appearance: PRESENT: no acute distress, disheveled, thin Head exam: PRESENT: other -large hematoma on the left lateral occiput as previously described with large wound bed from where he has been picking at it, no surrounding erythema or purulence. Respiratory exam: PRESENT: clear to auscultation lorraine, symmetrical, unlabored. ABSENT: accessory muscle use, chest wall tenderness, crackles, prolonged expiratory phas, rhonchi, tachypnea, wheezes Cardiovascular exam: PRESENT: RRR, +S1, +S2 Pulses: PRESENT: normal carotid pulses Vascular exam: PRESENT: normal capillary refill GI/Abdominal exam: PRESENT: hypoactive bowel sounds, soft. ABSENT: distended, guarding, rebound, tenderness Extremities exam: ABSENT: clubbing, pedal edema Musculoskeletal exam: PRESENT: normal inspection. ABSENT: deformity Neurological exam: ABSENT: oriented to person, oriented to place, oriented to situation Psychiatric exam: PRESENT: flat affect Skin exam: PRESENT: dry, pallor, warm Results Laboratory Results: 07/17/20 06:15 07/17/20 06:15 07/17/20 07/17/20 06:15 06:15 WBC 9.9 RBC 2.44 L Hgb 7.1 L Hct 21.4 L MCV 88 MCH 28.9 MCHC 33.0 RDW 18.2 H Plt Count 142 L Sodium 139.1 Potassium 3.4 L Chloride 112 H Carbon Dioxide 21 L Anion Gap 6 BUN 17 Creatinine 0.78 Est GFR ( Amer) > 60 Glucose 84 Calcium 8.2 L Impressions: Head CT 07/10/20 09:34 IMPRESSION: NO ACUTE INTRACRANIAL FINDINGS.Small amount of left parietal soft tissue swelling. EVIDENCE OF ACUTE STROKE: NO. Chest X-Ray 07/10/20 14:09 IMPRESSION: MINIMAL ATELECTASIS OR SCARRING IN THE LEFT LUNG BASE. CANNOT EX CLUDE EARLY PNEUMONIA ALTHOUGH PROBABLY LESS LIKELY. Assessment and Plan - Plan Summary Summary: (1) Hypernatremia (2) Dehydration (3) Acute kidney injury (4) Dementia (5) Coronary artery disease (6) Adequate anticoagulation on anticoagulant therapy (7) Moderate protein-calorie malnutrition Plan Summary Hypernatremia resolved. Continue normal saline was 20 of potassium at 75/h. Continue to try to feed him as much as he wants. Add 40 mEq of potassium more today. Swallow evaluation pending. If they think he can tolerate pills we will resume some of his home medications. [facility] be [facility] back to [facility] any time. - Time Anticipated Discharge Disposition: Home, Self Care Anticipated Discharge Timeframe: within 72 hours
[2020-07-17] MEDS: POTASSI CL 20 MEQ/50 ML RIDER 20 MEQ/50 ML RTUPB IV SCH ×2 (17:40→21:20)
[2020-07-17] MEDS: ATORVASTATIN CALCIUM 40 MG TABLET PO SCH (21:20)
[2020-07-17] MEDS: MIRTAZAPINE 15 MG TABLET PO SCH (21:20)
[2020-07-17] MEDS: MELATONIN 5 MG TABLET PO SCH (21:21)
[2020-07-18] MEDS: ACETAMINOPHEN 325 MG TABLET PO SCH ×4 (00:26→17:05)
[2020-07-18] MEDS: POTASSI CL 20 MEQ/NS 1L 1,000 ML IV PRN ×2 (06:27→20:29)
[2020-07-18] MEDS: ASCORBIC ACID 500 MG TABLET PO SCH (10:57)
[2020-07-18] MEDS: GABAPENTIN 100 MG CAPSULE PO SCH ×3 (10:57→17:05)
[2020-07-18] MEDS: ZINC SULFATE 220 MG CAPSULE PO SCH (10:57)
[2020-07-18] MEDS: FERROUS SULFATE 325 MG TABLET PO SCH (10:58)
[2020-07-18] MEDS: TRAZODONE HCL 50 MG TABLET PO SCH (10:58)
[2020-07-18] MEDS: BUSPIRONE HCL 10 MG TABLET PO SCH (10:58)
[2020-07-18] MEDS: CHOLECALCIFEROL (D3) 1,000 UNIT (25 MCG) TABLET PO SCH (10:59)
[2020-07-18] MEDS: TAMSULOSIN HCL 0.4 MG CAP.SR.24H PO SCH (10:59)
[2020-07-18] MEDS: SERTRALINE HCL 50 MG TABLET PO SCH (10:59)
[2020-07-18] MEDS: PANTOPRAZOLE SODIUM 20 MG TABLET.DR PO SCH (11:00)
[2020-07-18] MEDS: TRIAMCINOLONE ACETONIDE 0.1% CREAM 15 GM TOP SCH ×2 (11:00→23:00)
[2020-07-18] MEDS: QUETIAPINE FUMARATE 100 MG TABLET PO SCH ×2 (11:01→15:29)
[2020-07-18] MEDS: HALOPERIDOL 0.5 MG TABLET PO SCH (11:02)
--- NOTE | 2020-07-18 11:47 | PDOC PROGRESS REPORT ---
Subjective Date:: 07/18/20 Subjective:: No issues overnight. Vital signs been stable. He is currently off restraints. No clinical changes. Reason For Visit: HYPERNATREMIA Physical Exam Vital Signs: Temp Pulse Resp BP Pulse Ox 98.6 F 98 20 140/87 H 90 L 07/18/20 03:38 07/18/20 07:00 07/18/20 03:38 07/18/20 03:38 07/18/20 03:38 Intake & Output 07/17/20 07/18/20 07/19/20 06:59 06:59 06:59 Intake Total 945 1150 Balance 945 1150 Weight 117 lb 11.629 oz 118 lb 2.684 oz Exam: General appearance: PRESENT: no acute distress, disheveled, thin Head exam: PRESENT: other -large hematoma on the left lateral occiput as previously described with large wound bed from where he has been picking at it, no surrounding erythema or purulence. Respiratory exam: PRESENT: clear to auscultation lorraine, symmetrical, unlabored. ABSENT: accessory muscle use, chest wall tenderness, crackles, prolonged expiratory phas, rhonchi, tachypnea, wheezes Cardiovascular exam: PRESENT: RRR, +S1, +S2 Pulses: PRESENT: normal carotid pulses Vascular exam: PRESENT: normal capillary refill GI/Abdominal exam: PRESENT: hypoactive bowel sounds, soft. ABSENT: distended, guarding, rebound, tenderness Extremities exam: ABSENT: clubbing, pedal edema Musculoskeletal exam: PRESENT: normal inspection. ABSENT: deformity Neurological exam: ABSENT: oriented to person, oriented to place, oriented to situation Psychiatric exam: PRESENT: flat affect Skin exam: PRESENT: dry, pallor, warm Results Laboratory Results: 07/17/20 06:15 07/17/20 06:15 Impressions: Head CT 07/10/20 09:34 IMPRESSION: NO ACUTE INTRACRANIAL FINDINGS.Small amount of left parietal soft tissue swelling. EVIDENCE OF ACUTE STROKE: NO. Chest X-Ray 07/10/20 14:09 IMPRESSION: MINIMAL ATELECTASIS OR SCARRING IN THE LEFT LUNG BASE. CANNOT EXCLUDE EARLY PNEUMONIA ALTHOUGH PROBABLY LESS LIKELY. Assessment and Plan - Plan Summary Summary: (1) Hypernatremia (2) Dehydration (3) Acute kidney injury (4) Dementia (5) Coronary artery disease (6) Adequate anticoagulation on anticoagulant therapy (7) Moderate protein-calorie malnutrition Plan Summary Hypernatremia resolved. Continue normal saline was 20 of potassium at 75/h. Continue to try to feed him as much as he wants. Swallow evaluation pending. If they think he can tolerate pills we will resume some of his home medications. Can be transferred back to [facility] any time. - Time Anticipated Discharge Disposition: Home, Self Care Anticipated Discharge Timeframe: within 72 hours
[2020-07-19] MEDS: MIRTAZAPINE 15 MG TABLET PO SCH ×2 (00:17→21:12)
[2020-07-19] MEDS: MELATONIN 5 MG TABLET PO SCH ×2 (00:17→21:11)
[2020-07-19] MEDS: ATORVASTATIN CALCIUM 40 MG TABLET PO SCH ×2 (00:17→21:11)
[2020-07-19] MEDS: ACETAMINOPHEN 325 MG TABLET PO SCH ×5 (00:17→23:05)
[2020-07-19] MEDS: TRAZODONE HCL 50 MG TABLET PO SCH ×3 (00:18→21:11)
[2020-07-19 06:24] LABS: HEMATOCRIT 22.5 % (37.9-51.0); MEAN CORPUSCULAR HEMOGLOBIN 28.5 pg (27.0-33.4); MEAN CORPUSCULAR HGB CONC 32.1 g/dL (32.0-36.0); MEAN CORPUSCULAR VOLUME 89 fl (80-97); PLATELET COUNT 154 10^3/uL (150-450); RED BLOOD COUNT 2.53 10^6/uL (4.35-5.55); WHITE BLOOD COUNT 7.2 10^3/uL (4.0-10.5)
[2020-07-19 06:28] LABS: HEMOGLOBIN 7.2 g/dL (13.5-17.0)
[2020-07-19 06:45] LABS: ANION GAP 11 (5-19); BLOOD UREA NITROGEN 16 mg/dL (7-20); CALCIUM 7.8 mg/dL (8.4-10.2); CARBON DIOXIDE 17 mmol/L (22-30); CHLORIDE 122 mmol/L (98-107); GLUCOSE 92 mg/dL (75-110); POTASSIUM 3.6 mmol/L (3.6-5.0)
[2020-07-19] MEDS: TRIAMCINOLONE ACETONIDE 0.1% CREAM 15 GM TOP SCH ×2 (09:39→21:11)
[2020-07-19] MEDS: TAMSULOSIN HCL 0.4 MG CAP.SR.24H PO SCH (09:44)
[2020-07-19] MEDS: SERTRALINE HCL 50 MG TABLET PO SCH (09:44)
[2020-07-19] MEDS: ASCORBIC ACID 500 MG TABLET PO SCH (09:44)
[2020-07-19] MEDS: GABAPENTIN 100 MG CAPSULE PO SCH ×3 (09:45→17:41)
[2020-07-19] MEDS: BUSPIRONE HCL 10 MG TABLET PO SCH (09:45)
[2020-07-19] MEDS: FERROUS SULFATE 325 MG TABLET PO SCH (09:45)
[2020-07-19] MEDS: CHOLECALCIFEROL (D3) 1,000 UNIT (25 MCG) TABLET PO SCH (09:46)
[2020-07-19] MEDS: ZINC SULFATE 220 MG CAPSULE PO SCH (09:46)
[2020-07-19] MEDS: PANTOPRAZOLE SODIUM 20 MG TABLET.DR PO SCH (09:46)
[2020-07-19] MEDS: QUETIAPINE FUMARATE 100 MG TABLET PO SCH ×2 (09:54→15:37)
[2020-07-19] MEDS: HALOPERIDOL 0.5 MG TABLET PO SCH (12:54)
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
[2020-07-19] MEDS: POTASSI CL 20 MEQ/NS 1L 1,000 ML IV PRN (19:37)
[2020-07-20] MEDS: ACETAMINOPHEN 325 MG TABLET PO SCH ×3 (05:09→17:55)
[2020-07-20] MEDS: FERROUS SULFATE 325 MG TABLET PO SCH (10:34)
[2020-07-20] MEDS: QUETIAPINE FUMARATE 100 MG TABLET PO SCH ×2 (10:34→17:54)
[2020-07-20] MEDS: BUSPIRONE HCL 10 MG TABLET PO SCH (10:34)
[2020-07-20] MEDS: TRAZODONE HCL 50 MG TABLET PO SCH ×2 (10:34→21:34)
[2020-07-20] MEDS: TAMSULOSIN HCL 0.4 MG CAP.SR.24H PO SCH (10:34)
[2020-07-20] MEDS: ZINC SULFATE 220 MG CAPSULE PO SCH (10:35)
[2020-07-20] MEDS: SERTRALINE HCL 50 MG TABLET PO SCH (10:35)
[2020-07-20] MEDS: PANTOPRAZOLE SODIUM 20 MG TABLET.DR PO SCH (10:35)
[2020-07-20] MEDS: HALOPERIDOL 0.5 MG TABLET PO SCH (10:35)
[2020-07-20] MEDS: GABAPENTIN 100 MG CAPSULE PO SCH ×3 (10:35→17:55)
[2020-07-20] MEDS: ASCORBIC ACID 500 MG TABLET PO SCH (10:36)
[2020-07-20] MEDS: CHOLECALCIFEROL (D3) 1,000 UNIT (25 MCG) TABLET PO SCH (10:36)
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
[2020-07-20] MEDS: TRIAMCINOLONE ACETONIDE 0.1% CREAM 15 GM TOP SCH ×2 (17:53→21:34)
[2020-07-20] MEDS: POTASSI CL 20 MEQ/NS 1L 1,000 ML IV PRN (19:58)
[2020-07-20] MEDS ORDERED: LORAZEPAM INJ 2 MG/1 ML VIAL IV ONE (21:00)
[2020-07-20] MEDS: ATORVASTATIN CALCIUM 40 MG TABLET PO SCH (21:35)
[2020-07-20] MEDS: MIRTAZAPINE 15 MG TABLET PO SCH (21:35)
[2020-07-20] MEDS: MELATONIN 5 MG TABLET PO SCH (21:35)
[2020-07-21] MEDS: ACETAMINOPHEN 325 MG TABLET PO SCH ×4 (00:36→17:54)
[2020-07-21] MEDS ORDERED: RINGERS SOLUTION,LACTATED 1,000 ML IV PRN (08:07)
[2020-07-21] MEDS: TRAZODONE HCL 50 MG TABLET PO SCH (09:45)
[2020-07-21] MEDS: BUSPIRONE HCL 10 MG TABLET PO SCH (09:45)
[2020-07-21] MEDS: HALOPERIDOL 0.5 MG TABLET PO SCH (09:45)
[2020-07-21] MEDS: QUETIAPINE FUMARATE 100 MG TABLET PO SCH ×2 (10:06→15:16)
[2020-07-21] MEDS: CHOLECALCIFEROL (D3) 1,000 UNIT (25 MCG) TABLET PO SCH (10:07)
[2020-07-21] MEDS: PANTOPRAZOLE SODIUM 20 MG TABLET.DR PO SCH (10:07)
[2020-07-21] MEDS: GABAPENTIN 100 MG CAPSULE PO SCH ×3 (10:07→17:55)
[2020-07-21] MEDS: TRIAMCINOLONE ACETONIDE 0.1% CREAM 15 GM TOP SCH (10:07)
[2020-07-21] MEDS: ASCORBIC ACID 500 MG TABLET PO SCH (10:07)
[2020-07-21] MEDS: TAMSULOSIN HCL 0.4 MG CAP.SR.24H PO SCH (10:07)
[2020-07-21] MEDS: FERROUS SULFATE 325 MG TABLET PO SCH (10:07)
[2020-07-21] MEDS: SERTRALINE HCL 50 MG TABLET PO SCH (10:08)
[2020-07-21] MEDS: ZINC SULFATE 220 MG CAPSULE PO SCH (10:08)
[2020-07-21 12:34] VITALS: BP 122/87
[2020-07-21] MEDS ORDERED: HALOPERIDOL LACTATE INJ 5 MG/1 ML VIAL IM PRN (12:44)
[2020-07-21 12:46] LABS: BLOOD UREA NITROGEN 34 mg/dL (7-20); CALCIUM 8.5 mg/dL (8.4-10.2); GLUCOSE 118 mg/dL (75-110); POTASSIUM 4.1 mmol/L (3.6-5.0)
[2020-07-21 12:54] LABS: ANION GAP 7 (5-19); CARBON DIOXIDE 21 mmol/L (22-30); CHLORIDE 131 mmol/L (98-107)
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
[2020-07-21] MEDS ORDERED: MORPHINE SULFATE 10 MG/5 ML ORAL SOLUTION UDCUP PO PRN (16:15)
[2020-07-21] MEDS ORDERED: LORAZEPAM INJ 2 MG/1 ML VIAL IM PRN (16:15)
--- NOTE | 2020-07-21 16:20 | Progress Note ---
Provider Note Provider Note: Patient's daughter called and requested that the patient be made comfort measures. Order has been placed and comfort medications have been ordered. Daughter is allowed to come see the patient per hospital policy in the setting of comfort measures and COVID-19 infection. She understands that she must wear a mask at all times and accept the risk of being exposed to a Covid positive patient. Discussed with nursing.
[2020-07-21] MEDS ORDERED: SCOPOLAMINE HYDROBROMIDE 1.5 MG PATCH.TD72 TD SCH (20:00)
[2020-07-21] MEDS ORDERED: METHYLPREDNISOLONE INJ 40 MG/1 ML SDV IV SCH (22:00)
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
== END 2020-07-22 01:12 | DRG 640 ==
LOC: ER 07:06 → EH 15:55 → 4N 17:45 → 3W 07-14 14:53
PROVIDERS: ADMIT Family Medicine; ATTEND Internal Medicine
PROC: 0JQ03ZZ Repair Scalp Subcutaneous Tissue and Fascia, Percutaneous Approach (ICD-10-PCS; principal; 2020-07-10)
DX: E87.0 Hyperosmolality and hypernatremia (principal); U07.1 COVID-19; J12.89 Other viral pneumonia; N17.9 Acute kidney failure, unspecified; E44.0 Moderate protein-calorie malnutrition; Z68.1 Body mass index [BMI] 19.9 or less, adult; E86.0 Dehydration; I25.10 Atherosclerotic heart disease of native coronary artery without angina pectoris; G30.1 Alzheimer's disease with late onset; F02.80 Dementia in other diseases classified elsewhere, unspecified severity, without behavioral disturbance, psychotic disturbance, mood disturbance, and anxiety; S01.01XA Laceration without foreign body of scalp, initial encounter; W03.XXXA Other fall on same level due to collision with another person, initial encounter; Y92.128 Other place in nursing home as the place of occurrence of the external cause; Z66 Do not resuscitate; Z51.5 Encounter for palliative care; Z88.8 Allergy status to other drugs, medicaments and biological substances; Z79.01 Long term (current) use of anticoagulants; Z78.1 Physical restraint status; Z85.46 Personal history of malignant neoplasm of prostate
CPT/HCPCS: 36415; 70450; 71045; 80048; 80053; 83735; 85025; 85027; 85610; 85730; 87635; 96361; 96374; 99285; C9803; J1630; J2060; J2270; J3480; J3490; J7030; J7040; J7060; J7120